=== PATIENT | female | born 1985 | race Asian ===

== ENCOUNTER 2023-12-21 15:46 | Emergency (ER) | payer MEDICAID, OTHER ==
[~2023-12-21] VITALS: Ht 149.9 cm; Wt 65.8 kg
[2023-12-21 17:15] VITALS: BP_SYST 139; PULSE 98; RESP 18; TEMP 97.7; O2SAT 98
[2023-12-21] MEDS: DIPHTH,PERTUSS(ACELL),TET VAC 0.5 ML VIAL (Tdap) I.M. ONE (18:40)
[2023-12-21 19:03] VITALS: BP_SYST 139; PULSE 98; RESP 18; TEMP 97.7; O2SAT 98
== END 2023-12-21 18:58 | disposition home or self-care (01) ==
LOC: SED 15:46
DX: S61.212A Laceration without foreign body of right middle finger without damage to nail, initial encounter (principal); Z79.899 Other long term (current) drug therapy; W26.8XXA Contact with other sharp object(s), not elsewhere classified, initial encounter; Y93.89 Activity, other specified; Y92.89 Other specified places as the place of occurrence of the external cause; Y99.8 Other external cause status
CPT/HCPCS: 90715; 99283

== ENCOUNTER 2023-12-28 11:56 | Emergency (ER) | payer OTHER ==
[~2023-12-28] VITALS: Ht 149.9 cm; Wt 65.8 kg
[2023-12-28 12:04] VITALS: BP_SYST 117; PULSE 79; RESP 19; TEMP 98.2; O2SAT 99
[2023-12-28 12:41] VITALS: BP_SYST 117; PULSE 79; RESP 19; TEMP 98.2; O2SAT 99
== END 2023-12-28 12:41 | disposition home or self-care (01) ==
LOC: SED 11:56
DX: S61.212D Laceration without foreign body of right middle finger without damage to nail, subsequent encounter (principal); X58.XXXD Exposure to other specified factors, subsequent encounter; Z48.02 Encounter for removal of sutures
CPT/HCPCS: 99281